=== PATIENT | female | born 1940 | race Caucasian/White ===

== ENCOUNTER 2017-09-30 16:28 | Emergency (ER) | payer MEDICARE ==
[~2017-09-30] VITALS: Ht 165.1 cm; Wt 63.0 kg
[2017-09-30] MEDS ORDERED: AUGMENTIN 875875 MG PO (18:14)
[2017-09-30] MEDS ORDERED: NORCO 5-325 TA1 EACH PO (18:14)
== END 2017-09-30 18:35 | disposition home or self-care (01) ==
LOC: ED 16:28
DX: S61.252A Open bite of right middle finger without damage to nail, initial encounter (principal); S61.431A Puncture wound without foreign body of right hand, initial encounter; S71.131A Puncture wound without foreign body, right thigh, initial encounter; Z98.51 Tubal ligation status; Z88.5 Allergy status to narcotic agent; W54.0XXA Bitten by dog, initial encounter; Y93.89 Activity, other specified; Y92.89 Other specified places as the place of occurrence of the external cause; Y99.9 Unspecified external cause status

== ENCOUNTER → 2017-10-02 | Outpatient (CLI) | payer MEDICARE ==
[~2017-10-02] MED LIST: AUGMENTIN 875875 MG PO; NORCO 5-325 TA1 EACH PO
== END | disposition home or self-care (01) ==
LOC: WOUNDCARE 11:48
DX: S61.451A Open bite of right hand, initial encounter (principal); S71.051A Open bite, right hip, initial encounter; S71.151A Open bite, right thigh, initial encounter; S61.252A Open bite of right middle finger without damage to nail, initial encounter; Z87.891 Personal history of nicotine dependence; W54.0XXA Bitten by dog, initial encounter; Y93.89 Activity, other specified; Y92.89 Other specified places as the place of occurrence of the external cause; Y99.8 Other external cause status

== ENCOUNTER → 2017-10-09 | Outpatient (CLI) | payer MEDICARE | END | disposition home or self-care (01) | LOC: WOUNDCARE 10-06 10:53 | DX: S61.451D Open bite of right hand, subsequent encounter (principal); S71.051D Open bite, right hip, subsequent encounter; S71.151D Open bite, right thigh, subsequent encounter; S61.252D Open bite of right middle finger without damage to nail, subsequent encounter; Z87.891 Personal history of nicotine dependence; W54.0XXD Bitten by dog, subsequent encounter ==

== ENCOUNTER → 2017-10-16 | Outpatient (CLI) | payer MEDICARE | END | disposition home or self-care (01) | LOC: WOUNDCARE 00:50 | DX: L97.118 Non-pressure chronic ulcer of right thigh with other specified severity (principal); L98.498 Non-pressure chronic ulcer of skin of other sites with other specified severity; S71.051D Open bite, right hip, subsequent encounter; S61.252D Open bite of right middle finger without damage to nail, subsequent encounter; Z87.891 Personal history of nicotine dependence; W54.0XXD Bitten by dog, subsequent encounter ==